=== PATIENT | female | born 1995 | race Caucasian/White ===

== ENCOUNTER 2022-07-06 18:35 | Emergency (ER) | payer SELFPAY ==
[2022-07-06 19:40] LABS: ANION GAP 9.2 meq/L (7-15)
[2022-07-06] MEDS: Iopamidol 755 Mg/ML 100 ML Bottle ONE (20:16)
== END 2022-07-06 21:35 | disposition home or self-care (01) ==
LOC: LL.ED 18:35
DX: R06.02 Shortness of breath (principal)
CPT/HCPCS: 36415; 71275; 80053; 85025; 85379; 93005; 93010; 99284; 99285; Q9967

== ENCOUNTER 2022-07-26 18:41 | Emergency (ER) | payer SELFPAY ==
[2022-07-26 19:26] LABS: HEMOGLOBIN A1C 4.9 % (4.3-5.7)
[2022-07-26 19:34] LABS: CHLORIDE,CL 104 mmol/L (98-107); SODIUM,NA 143 mmol/L (136-145)
[2022-07-26 19:35] LABS: ANION GAP 14.3 meq/L (7-15); ESTIMATED GFR 120 mL/min (>=60)
[2022-07-26] MEDS ORDERED: Potassium Chloride 20 MEQ Tab.ER PO ONE (20:10)
== END 2022-07-26 20:40 | disposition home or self-care (01) ==
LOC: LL.ED 18:41
DX: I49.1 Atrial premature depolarization (principal); E87.6 Hypokalemia; Z88.0 Allergy status to penicillin
CPT/HCPCS: 36415; 80053; 81001; 83036; 83735; 84484; 85025; 93005; 99285; A9270

== ENCOUNTER 2022-08-29 19:25 | Emergency (ER) | payer SELFPAY ==
[2022-08-29 20:57] LABS: CHLORIDE,CL 101 mmol/L (98-107); SODIUM,NA 139 mmol/L (136-145)
[2022-08-29 21:02] LABS: ANION GAP 12.1 meq/L (7-15); ESTIMATED GFR 110 mL/min (>=60)
[2022-08-29] MEDS ORDERED: Potassium Chloride 20 MEQ Tab.ER PO ONE (21:11)
== END 2022-08-29 21:11 | disposition home or self-care (01) ==
LOC: LL.ED 19:25
DX: R06.02 Shortness of breath (principal); E87.6 Hypokalemia; Z88.0 Allergy status to penicillin
CPT/HCPCS: 36415; 71045; 80053; 81001; 81025; 83735; 84484; 85025; 85379; 93005; 93010; 99284; 99285; A9270-GY

== ENCOUNTER 2022-09-08 15:57 | Emergency (ER) | payer SELFPAY ==
[2022-09-08] MEDS ORDERED: Aspirin 81 MG Tab.Chew PO ONE (16:14)
[2022-09-08] MEDS ORDERED: Sodium Chloride 0.9% 10 ML Syringe FLUSH PRN (16:14)
[2022-09-08] MEDS ORDERED: Aspirin 81 MG Tab.Chew ONE (16:16)
[2022-09-08 16:56] LABS: ANION GAP 8.3 meq/L (7-15)
[2022-09-08 17:15] LABS: CORONAVIRUS COVID-19 NAA NEGATIVE (NEGATIVE); RESPIRATORY SYNCYTIAL VIR NAA NEGATIVE (NEGATIVE)
== END 2022-09-08 17:40 | disposition home or self-care (01) ==
LOC: LL.ED 15:57
DX: R07.89 Other chest pain (principal); U09.9 Post COVID-19 condition, unspecified; Z88.0 Allergy status to penicillin; Z20.822 Contact with and (suspected) exposure to COVID-19
CPT/HCPCS: 0241U; 36415; 71045; 80053; 83735; 84484; 85025; 85379; 93005; 93010; 99284; 99285; A9270-GY

== ENCOUNTER 2022-09-14 19:57 | Emergency (ER) | payer SELFPAY ==
[2022-09-14 20:55] LABS: ANION GAP 7.2 meq/L (7-15); CHLORIDE,CL 102 mmol/L (98-107); SODIUM,NA 141 mmol/L (136-145)
[2022-09-14 20:56] LABS: ESTIMATED GFR 124 mL/min (>=60)
== END 2022-09-14 21:13 | disposition home or self-care (01) ==
LOC: LL.ED 19:57
DX: R10.30 Lower abdominal pain, unspecified (principal); Z88.0 Allergy status to penicillin
CPT/HCPCS: 36415; 74019; 80053; 81003; 85025; 99284